=== PATIENT | female | born 1940 | race Caucasian/White ===

== ENCOUNTER 2018-05-03 22:54 | Inpatient (IN) ==
[2018-05-04] MEDS ORDERED: Aluminum/Magnesium/Simethacone Susp 30 ML UDC PO PRN ×2 (05:23→10:45)
[2018-05-04] MEDS ORDERED: LORazepam 0.5 MG Tablet PO PRN (05:23)
[2018-05-04] MEDS ORDERED: Acetaminophen 325 MG Tablet PO PRN (05:23)
[2018-05-04] MEDS ORDERED: Ibuprofen 600 MG Tablet PO SCH (06:00)
[2018-05-04 09:34] LABS: Baso % (Auto) 0.3 % (0.0-2.0); Eos % (Auto) 0.6 % (0.0-4.0); Hematocrit 41.1 % (35.0-46.0); Hemoglobin 13.7 gm/dL (11.6-15.3); Lymph # (Auto) 2.1 th/mm3 (1.0-4.8); Lymph % (Auto) 29.9 % (9.0-44.0); Mean Corpuscular HGB Conc 33.4 % (32.0-36.0); Mean Corpuscular Hemoglobin 29.5 pg (27.0-34.0); Mean Corpuscular Volume 88.5 fL (80.0-100.0); Mono # (Auto) 0.5 th/mm3 (0.0-0.9); Mono % (Auto) 6.6 % (0.0-8.0); Neut # (Auto) 4.3 th/mm3 (1.8-7.7); Neut % (Auto) 62.6 % (16.0-70.0); Platelet Count 213 th/mm3 (150-450); Red Blood Count 4.64 mil/mm3 (4.00-5.30); Red Cell Distribution Width 13.6 % (11.6-17.2); White Blood Count 6.9 th/mm3 (4.0-11.0)
[2018-05-04 09:45] LABS: Clarity,Urine Clear (Clear); Color,Urine Yellow (Yellw/Straw); Glucose,Urine (UA) Negative (Negative); Leukocyte Esterase,Urine Negative (Negative); Nitrite,Urine Negative (Negative); PH,Urine 6.5 (5.0-8.5)
[2018-05-04 09:48] LABS: Bilirubin,Urine Negative (Negative); Specific Gravity,Urine 1.026 (1.002-1.035)
[2018-05-04 10:16] LABS: RBC,Urine 0-3 /hpf (0-3); Squamous Epithelial Cell,Urine 0-5 /hpf (0-5); WBC,Urine 0-5 /hpf (0-5)
[2018-05-04 10:18] LABS: Amorphous Sediment,Urine Few /hpf
[2018-05-04 10:28] LABS: Albumin 3.5 g/dL (3.4-5.0); Anion Gap 11 meq/L (5-15); Aspartate Aminotransferase 9 U/L (15-37); Blood Urea Nitrogen 14 mg/dL (7-18); Calcium 8.9 mg/dL (8.5-10.1); Carbon Dioxide 28.3 meq/L (21.0-32.0); Chloride 108 meq/L (98-107); Glomerular Filtration Rate 53 mL/min (>89); Glucose,Random 115 mg/dL (74-106); Sodium 147 meq/L (136-145)
[2018-05-04 10:36] LABS: Chol/HDL Ratio 3.44 Ratio; HDL Cholesterol 50.5 mg/dL (40.0-60.0)
[2018-05-04 10:40] LABS: Alanine Aminotransferase 16 U/L (10-53); Alkaline Phosphatase 39 U/L (45-117); Total Protein 6.7 g/dL (6.4-8.2)
[2018-05-04] MEDS ORDERED: Bisacodyl 10 MG Supp RECTAL PRN (10:45)
--- NOTE | 2018-05-04 11:07 | P.HPPSY ---
Provisional Diagnosis Admission Date: May 04, 2018 00:46 [place] I.: Adjustment disorder with depressed mood Competence Certification of Person's Competence To Provide Express and Informed Consent I have personally examined Turner Peoples, a person being served at [facility] on, May 04, 2018 1055. Express and informed consent means consent voluntarily given in writing, by a competent person, after sufficient explanation and disclosure of the subject matter involved to enable the person to make a knowing and willful decision without any element of force, fraud, deceit, duress, or other form of constraint or coercion. This person is 18 years of age or older, is not now known to be incompetent to consent to treatment with a guardian advocate, and does not have a health care surrogate or proxy currently making medical treatment decisions. I have found this person to be one of the following: [xxxx] Competent to provide express and informed consent, as defined above, for voluntary admission to this facility and is competent to provide express and informed consent for treatment. He/she has the consistent capacity to make well reasoned, willful, and knowing decisions concerning his or her medical or mental health treatment. The person fully and consistently understands the purpose of the admission for examination/placement and is fully capable of personally exercising all rights assured [place] Incompetent to provide express and informed consent to voluntary admission, and this is incompetent to provide express and informed consent to treatment. The person must be transferred to involuntary status and a petition for a guardian advocate filed with the Circuit Court. [] Refusing to provide express and informed consent to voluntary admission but is competent to provide express and informed consent for treatment. The person must be discharged or transferred to involuntary status. Form shall be completed within 24 hours of a person's arrival at the receiving facility and filed in the clinical record of each person: 1. Admitted on a voluntary basis 2. Permitted to provide express and informed consent to his/her own treatment 3. Allowed to transfer from involuntary to voluntary status 4. Prior to permitting a person to consent to his or her own treatment after having been previously found incompetent to consent to treatment. History of Present Illness Capacity: Has capacity History of Present Illness: Patient is an 78-year-old white female initially came here in transfer from [facility] under a [place] act signed by Dilan Cazares [facility] kevin Rodríguez dated 05/03/1817 and 35 that document reviewed states wishes to patient recently treated for depression/anxiety now cannot take it anymore wishes to . Patient seen screen in that facility urine toxicology positive for benzodiazepines. Patient medically cleared and transferred here under the [place] act. At the present time patient sitting quietly in the exam room along with nurse Tameka. Patient is alert oriented clean and neat attractive calm cooperative white female appears younger than her stated age. History of increased depression with anxiety over the past few months related to significant medical issues that her of 55 years is experiencing that is led him being on chronic dialysis 3 times a week. He is home he is doing fairly well on the dialysis. Patient states she is getting along well with her . She has 2 adult daughters and grandchildren and great grandchildren and they all get along well together. Patient denies any prior psychiatric contact or hospitalization though she has been placed on benzodiazepines and Celexa in an emergency department visit a couple of weeks ago when she had what appears to been a panic type attack. She also has a primary care physician. Patient denies any mental health history in her family patient denies any alcohol or drug use or addictions in her family also. She denies any past physical or sexual abuse. 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 Patient is still concerned about her medications and her mood. We did explain to her the biopsychosocial model for depression. At this time I feel she does meet criteria for further observation for another 24-48 hours. Though I will lift the [place] act allow her to sign voluntary will continue her on her Celexa at 20 mg daily first dose yet today we will discontinue all benzodiazepines. At small amount of Atarax she needs something for anxiety. We will also refer her through to the psychiatric services in the community upon discharge - Inpatient Certification I certify that the inpatient services were ordered in accordance with Medicare regulations governing the order. This includes certification that hospital inpatient services are reasonable and necessary and in the case of services not specified as inpatient-only under 42 CFR 419.22(n), that they are appropriately provided as inpatient services in accordance to with the 2-midnight benchmark under 43 CFR 412.3(e) I certify that inpatient psychiatric hospital services are medically necessary. Evaluation and treatment and/or diagnostic testing are expected to improve the patient's condition. The patient needs on a daily basis, active treatment furnished directly by or requiring the supervision of inpatient psychiatric facility personnel. Estimated Total Length of Stay (Days): 5 Plans for Post Hospital Care: Home Review of Systems All other systems reviewed negative except as stated in HPI [facility] - History History Provided By: Patient - Medical History Medical History: Medical History (Last Updated 05/04/18 @ 06:13 by Julia Huang RN) Cyst of breast, benign solitary Onset Date: ~1979 Diverticulosis Hypercholesteremia Hypertension - Tobacco History Second Hand Smoke Exposure: No Smoking Status: Never smoker - Alcohol History How Often Do You Have a Drink Containing Alcohol: Monthly or less - Substance Use History Substance History: No History of Abuse - Immunization History Tetanus Immunization: Unsure Hx Influenza Vaccine This Season: Yes Quality Measures - Psychiatric History Psychological trauma history: Patient denies Violence risk to others in the last 6 months: Low Violence risk to self in the last 6 months: Low - Substance Abuse History Drug or alcohol use in the past 12 months: Patient denies - Patient Strengths Patient's strengths (minimum of 2): Patient calm cooperative alert and intelligent with good support group Medications and Allergies Active Medications: Active Medications Acetaminophen (Tylenol) 650 mg PO Q4H PRN PRN Reason: Pain 1-5 or Temp >101F Al Hydrox/Mg Hydrox/Simethicone (Mag-Al Plus Susp Liq) 30 ml PO Q6H PRN PRN Reason: DYSPEPSIA Al Hydrox/Mg Hydrox/Simethicone (Mag-Al Plus Susp Liq) 30 ml PO Q6H PRN PRN Reason: DYSPEPSIA Al Hydroxide/Mg Hydroxide (Milk Of Magnesia Liq) 30 ml PO DAILY PRN PRN Reason: Constipation Al Hydroxide/Mg Hydroxide (Milk Of Magnesia Liq) 30 ml PO Q12H PRN PRN Reason: Mild Constipation Bisacodyl (Dulcolax Supp) 10 mg RECTAL DAILY PRN PRN Reason: SEVERE CONSITIPATION Citalopram Hydrobromide (Celexa) 20 mg PO DAILY DEDE Diphenhydramine HCl (Benadryl) 50 mg PO HS PRN PRN Reason: INSOMNIA Hydroxyzine HCl (Atarax) 50 mg PO Q6H PRN PRN Reason: ANXIETY Lactulose (Lactulose Liq) 30 ml PO DAILY PRN PRN Reason: SEVERE CONSITIPATION Nicotine (Habitrol 21 Mg Patch.24 Hr) 1 patch T-DERMAL DAILY DEDE Last Admin: 05/04/18 09:17 Dose: Not Given Senna/Docusate Sodium (Angela-Colace) 1 tab PO BID [facility] Sennosides (Senokot) 17.2 mg PO Q12H PRN PRN Reason: Moderate Constipation Allergies Allergy/AdvReac Type Severity Reaction Status Date / Time levofloxacin [From Levaquin] Allergy Hives Verified 05/04/18 05:18 Results - Labs CBC & Chem 7: 05/04/18 08:48 05/04/18 08:48 Labs: Laboratory Results - last 24 hr 05/04/18 05/04/18 05/04/18 08:20 08:48 08:48 WBC 6.9 RBC 4.64 Hgb 13.7 Hct 41.1 MCV 88.5 MCH 29.5 MCHC 33.4 RDW 13.6 Plt Count 213 MPV 10.0 Neut % (Auto) 62.6 Lymph % (Auto) 29.9 [place] % (Auto) 6.6 Eos % (Auto) 0.6 Baso % (Auto) 0.3 Neut # (Auto) 4.3 Lymph # (Auto) 2.1 [place] # (Auto) 0.5 Eos # (Auto) 0.0 Baso # (Auto) 0.0 WBC Differential . Differential Comment Auto diff final Sodium 147 H Potassium 3.0 L Chloride 108 H Carbon Dioxide 28.3 Anion Gap 11 BUN 14 Creatinine 1.00 Estimated GFR 53 L Random Glucose 115 H Calcium 8.9 Total Bilirubin 0.5 AST 9 L ALT 16 Alkaline Phosphatase 39 L Total Protein 6.7 Albumin 3.5 Triglycerides Cholesterol LDL Cholesterol, Calc HDL Cholesterol Cholesterol/HDL Ratio TSH 1.550 Ur Collection Type Clean catch Urine Color Yellow Urine Clarity Clear Urine pH 6.5 Ur Specific [place] 1.026 Urine Protein 30 H Urine Glucose (UA) Negative Urine Ketones Negative Urine Occult Blood Negative Urine Nitrate Negative Urine Bilirubin Negative Urine Urobilinogen 1.0 Ur Leukocyte Esterase Negative Urine RBC 0-3 Urine WBC 0-5 Ur Squamous Epith Cells 0-5 Ur Transition Epith Cell 1-5 H Amorphous Sediment Few H Micro UA Comment Culture not ind Urine Culture Comments Culture not ind 05/04/18 08:48 WBC RBC Hgb Hct MCV MCH MCHC RDW Plt Count MPV Neut % (Auto) Lymph % (Auto) [place] % (Auto) Eos % (Auto) Baso % (Auto) Neut # (Auto) Lymph # (Auto) [place] # (Auto) Eos # (Auto) Baso # (Auto) WBC Differential Differential Comment Sodium Potassium Chloride Carbon Dioxide Anion Gap BUN Creatinine Estimated GFR Random Glucose Calcium Total Bilirubin AST ALT Alkaline Phosphatase Total Protein Albumin Triglycerides 116 Cholesterol 174 LDL Cholesterol, Calc 100 H HDL Cholesterol 50.5 Cholesterol/HDL Ratio 3.44 TSH Ur Collection Type Urine Color Urine Clarity Urine pH Ur Specific [place] Urine Protein Urine Glucose (UA) Urine Ketones Urine Occult Blood Urine Nitrate Urine Bilirubin Urine Urobilinogen Ur Leukocyte Esterase Urine RBC Urine WBC Ur Squamous Epith Cells Ur Transition Epith Cell Amorphous Sediment Micro UA Comment Urine Culture Comments Exam Vital signs: Vital Signs 05/04/18 04:42 05/04/18 06:38 Temperature 97.5 F L 97.5 F L Pulse Rate 71 83 Respiratory Rate 17 Blood Pressure 169/77 H 165/74 H Pulse Oximetry 98 Intake & Output 05/03/18 05/04/18 05/04/18 18:59 06:59 18:59 Weight 52.4 kg Other: Weight On Admission 52.4 kg Narrative: Patient sitting quietly in exam room with nurse Tameka, she is in no acute distress, there is no respiratory distress, no complaints of chest pain no complaints of abdominal pain. Patient moving all 4 extremities without difficulty Mental Status Examination Appearance: Appropriate, Well dressed/well groomed Consciousness: Alert Orientation: x4 Motor Activity: Normal gait Speech: Unremarkable Language: Adequate Fund of Knowledge: Adequate Attention and Concentration: Adequate Memory: Unremarkable Mood: Other (Euthymic to mildly dysphoric) Affect: Other (Good range and intensity) Thought Process & Associations: Intact, Logical Thought Content: Appropriate Delusion Type: None Suicidal Ideation: No Suicidal Plan: No Suicidal Intention: No Homicidal Ideation: No Homicidal Plan: No Homicidal Intention: No Insight: Adequate Judgment: Adequate Assessment and Plan - Assessment (1) Adjustment disorder with depressed mood Code(s): F43.21 - Adjustment disorder with depressed mood Status: Acute - Plan Plan: Estimated LOS: 1-2 [] days Patient meets criteria for further observation though we will lift the [place] act allow her to sign voluntary. We will continue her Celexa 20 mg daily. We will refrain from any benzodiazepines. Hope this will be a short stay we can refer both counseling and mental health services in the community Justification for Continued Inpatient Stay: We will restart the medication observe for another 24-48 hours Discharge Planning: Return home Request Healthcare Surrogate/Guardian Advocate?: No
[2018-05-04] MEDS: Citalopram 20 MG Tablet PO SCH (12:14)
[2018-05-04 16:34] LABS: Hemoglobin A1c 5.4 % (4.3-6.0)
--- NOTE | 2018-05-04 16:35 | P.CON ---
History of Present Illness Service: Hospitalist Consult date: 05/04/18 Requesting Physician: Nicholas Caldwell Reason for Consult: Medical Managment Primary Care Provider: Kristie Martin DO Chief Complaint: sad History of Present Illness: Patient is an 78-year-old white female who was transferred from [facility] under [place] act due to depression and possible suicidal intention. Past medical history includes hypertension and hyperlipidemia. Patient reports that her depression has increased due to the fact that she is dealing with her 's illness and helping him to dialysis 3 times a week.. She is seen in her room. She is dressed neatly and appears quite a bit younger than her age. She tells me that she has no concerns at this time. Denies chest pain or shortness of breath. No nausea vomiting or diarrhea. She is tolerating her meals well. Normal urination and bowel movements. Review of Systems All other systems reviewed negative except as stated in HPI [facility] - History History Provided By: Patient, Medical Record - Medical History Medical History: Medical History (Last Reviewed 05/04/18 @ 16:20 by RYLEY Yanes) Cyst of breast, benign solitary Onset Date: ~1979 Diverticulosis Hypercholesteremia Hypertension - Surgical History Surgical History: Surgical History (Last Reviewed 05/04/18 @ 16:20 by RYLEY Yanes) H/O section S/P breast lumpectomy - Family History Family History: Family History (Last Reviewed 05/04/18 @ 16:20 by RYLEY Yanes) Mother HTN (hypertension) - Tobacco History Second Hand Smoke Exposure: No Smoking Status: Never smoker - Alcohol History How Often Do You Have a Drink Containing Alcohol: Monthly or less - Substance Use History Substance History: No History of Abuse - Immunization History Tetanus Immunization: Unsure Hx Influenza Vaccine This Season: Yes Medications and Allergies Active Medications: Active Medications Acetaminophen (Tylenol) 650 mg PO Q4H PRN PRN Reason: Pain 1-5 or Temp >101F Al Hydrox/Mg Hydrox/Simethicone (Mag-Al Plus Susp Liq) 30 ml PO Q6H PRN PRN Reason: DYSPEPSIA Al Hydroxide/Mg Hydroxide (Milk Of Magnesia Liq) 30 ml PO Q12H PRN PRN Reason: Mild Constipation Bisacodyl (Dulcolax Supp) 10 mg RECTAL DAILY PRN PRN Reason: SEVERE CONSITIPATION Citalopram Hydrobromide (Celexa) 20 mg PO DAILY [facility] Last Admin: 05/04/18 12:14 Dose: 20 mg Diphenhydramine HCl (Benadryl) 50 mg PO HS PRN PRN Reason: INSOMNIA Hydroxyzine HCl (Atarax) 50 mg PO Q6H PRN PRN Reason: ANXIETY Last Admin: 05/04/18 13:38 Dose: 50 mg Lactulose (Lactulose Liq) 30 ml PO DAILY PRN PRN Reason: SEVERE CONSITIPATION Nicotine (Habitrol 21 Mg Patch.24 Hr) 1 patch T-DERMAL DAILY [facility] Last Admin: 05/04/18 09:17 Dose: Not Given Senna/Docusate Sodium (Angela-Colace) 1 tab PO BID [facility] Sennosides (Senokot) 17.2 mg PO Q12H PRN PRN Reason: Moderate Constipation Allergies Allergy/AdvReac Type Severity Reaction Status Date / Time levofloxacin [From [facility]] Allergy Hives Verified 05/04/18 05:18 Home Medications Medication Instructions Recorded Confirmed Type lovastatin 1 tab PO 05/04/18 History triamterene-hydrochlorothiazid 1 tab PO DAILY 05/04/18 05/04/18 History Physical Exam Vital signs: Vital Signs 05/04/18 04:42 05/04/18 06:38 Temperature 97.5 F L 97.5 F L Pulse Rate 71 83 Respiratory Rate 17 Blood Pressure 169/77 H 165/74 H Pulse Oximetry 98 Intake & Output 05/03/18 05/04/18 05/04/18 18:59 06:59 18:59 Weight 52.4 kg Other: Date of Last Bowel Movement 05/03/18 Weight On Admission 52.4 kg Narrative: GENERAL: Well-nourished, well-developed adult female in no obvious distress. SKIN: Warm and dry. HEAD: Atraumatic. Normocephalic. CARDIOVASCULAR: Regular rate and rhythm. RESPIRATORY: No accessory muscle use. Clear to auscultation. Breath sounds equal bilaterally. GASTROINTESTINAL: Abdomen soft, non-tender, non-distended. Positive bowel sounds. MUSCULOSKELETAL: Extremities without clubbing, cyanosis, or edema. No obvious deformities. NEUROLOGICAL: Awake and alert. No obvious cranial nerve deficits. Motor grossly within normal limits. Normal speech. Assessment and Plan - Plan Patient is an 78-year-old white female who was transferred from [facility] under [place] act due to depression and possible suicidal intention. Past medical history includes hypertension and hyperlipidemia. Patient reports that her depression has increased due to the fact that she is dealing with her 's illness and helping him to dialysis 3 times a week. Depression -Managed by psychiatry Hypertension -Restart home medications -Maxzide Hyperlipidemia -Restart home medication -lovastatin Hypokalemia -Acute. give 40 mEq PO on 05/04. Repeat BMP. DVT prophylaxis: Patient is ambulatory Thank you for this consult. we appreciate the opportunity to assist you with medical management of this patient
[2018-05-04] MEDS ORDERED: Triamterene/HCTZ 37.5 MG/25 MG Tablet PO ONE (19:00)
[2018-05-04] MEDS: Senna/Docusate Sodium 8.6/50 MG Tablet PO SCH (20:38)
[2018-05-05 06:40] VITALS: O2SAT 96
[2018-05-05] MEDS: Triamterene/HCTZ 37.5 MG/25 MG Tablet PO SCH (08:14)
[2018-05-05] MEDS: Senna/Docusate Sodium 8.6/50 MG Tablet PO SCH ×2 (08:14→21:01)
[2018-05-05] MEDS: Citalopram 20 MG Tablet PO SCH (08:14)
[2018-05-05 11:09] LABS: Calcium 9.1 mg/dL (8.5-10.1); Carbon Dioxide 30.5 meq/L (21.0-32.0); Potassium 3.3 meq/L (3.5-5.1)
--- NOTE | 2018-05-05 15:02 | P.PNPSY ---
Subjective Remarks: Patient seen in her room with RN. Chart reviewed. Patient compliant medication. It appears patient tolerated today's dose of Celexa without problem. She says she is sleeping somewhat better also. Her mood remained sad. For now continue treatment Review of Systems All other systems reviewed negative except as stated in HPI Mental Status Examination Appearance: Appropriate, Well dressed/well groomed Consciousness: Alert Orientation: x4 Motor Activity: Normal gait Speech: Unremarkable Language: Adequate Fund of Knowledge: Adequate Attention and Concentration: Adequate Memory: Unremarkable Mood: Other (Euthymic to mildly dysphoric) Affect: Other (Good range and intensity) Thought Process & Associations: Intact, Logical Thought Content: Appropriate Delusion Type: None Suicidal Ideation: No Suicidal Plan: No Suicidal Intention: No Homicidal Ideation: No Homicidal Plan: No Homicidal Intention: No Insight: Adequate Judgment: Adequate Assessment and Plan - Assessment (1) Adjustment disorder with depressed mood Code(s): F43.21 - Adjustment disorder with depressed mood Status: Acute - Plan Plan: Patient continues depressed though somewhat improved. Compliant medication. For now continue treatment Justification for Continued Inpatient Stay: At this time patient would decompensate a place to the lower level of care Discharge Planning: Return home with family Request Healthcare Surrogate/Guardian Advocate?: No
--- NOTE | 2018-05-05 16:54 | P.PN ---
Subjective Interval history: Follow-up visit for hypertension, hyperlipidemia, and hypokalemia. Patient is seen and examined in the day room eating dinner and in no acute distress. She denies any fevers, chills, cough, shortness of breath,N/V/D, dizziness, lightheadedness, or chest pain. Does not report any acute concerns at this moment. Physical Exam Vital signs: Vital Signs 05/04/18 17:51 05/04/18 18:00 Temperature 36.8 C Pulse Rate 67 73 Respiratory Rate 16 16 Blood Pressure 170/77 H 121/76 Pulse Oximetry 97 96 Intake & Output 05/04/18 05/05/18 05/05/18 18:59 06:59 18:59 Other: Date of Last Bowel Movement 05/03/18 05/03/18 Narrative: GENERAL: Well-nourished, well-developed adult female in no obvious distress. SKIN: Warm and dry. HEAD: Atraumatic. Normocephalic. CARDIOVASCULAR: Regular rate and rhythm. RESPIRATORY: No accessory muscle use. Clear to auscultation. Breath sounds equal bilaterally. MUSCULOSKELETAL: Extremities without edema. No obvious deformities. NEUROLOGICAL: Awake and alert. No obvious cranial nerve deficits. Motor grossly within normal limits. Normal speech. Results - Labs CBC & Chem 7: 05/04/18 08:48 05/05/18 09:35 Laboratory Results - last 24 hr 05/04/18 05/05/18 08:48 09:35 Sodium 145 Potassium 3.3 L Chloride 107 Carbon Dioxide 30.5 Anion Gap 8 BUN 19 H Creatinine 1.13 H Estimated GFR 46 L Random Glucose 95 Hemoglobin A1c 5.4 Calcium 9.1 Assessment and Plan - Plan Patient is an 78-year-old white female who was transferred from [facility] under [place] act due to depression and possible suicidal intention. Past medical history includes hypertension and hyperlipidemia. Patient reports that her depression has increased due to the fact that she is dealing with her 's illness and helping him to dialysis 3 times a week. Depression -Managed by psychiatry Hypertension - Continue Maxzide -BP fluctuates, but has been stable as of last HS Hyperlipidemia -Continue lovastatin Hypokalemia -Acute, s/p p.o KCL replacement. K still low at 3.3, replace with po -recheck labs in the am DVT prophylaxis: Patient is ambulatory Discussed Condition With: Patient
[2018-05-06 06:36] LABS: Calcium 8.6 mg/dL (8.5-10.1); Carbon Dioxide 28.8 meq/L (21.0-32.0); Magnesium 2.2 mg/dL (1.5-2.5); Potassium 3.7 meq/L (3.5-5.1)
[2018-05-06] MEDS: Senna/Docusate Sodium 8.6/50 MG Tablet PO SCH (08:42)
[2018-05-06] MEDS: Triamterene/HCTZ 37.5 MG/25 MG Tablet PO SCH (08:42)
[2018-05-06] MEDS: Citalopram 20 MG Tablet PO SCH (08:42)
[2018-05-06 11:15] VITALS: BP 156/71; PULSE 80; RESP 17; TEMP 98.1
--- NOTE | 2018-05-06 11:55 | P.DSPSY ---
Psychiatry Discharge Summary Inpatient Psychiatric care?: Yes Advance Directives: No Mental Health Advance Directive: No Health Care Proxy: No - Admission Admission Date: May 04, 2018 00:46 - Admission Diagnosis (1) Adjustment disorder with depressed mood Code(s): F43.21 - Adjustment disorder with depressed mood Brief History: Patient is an 78-year-old white female initially came here in transfer from [facility] under a [place] act signed by Dilan Cazares [facility] dated 05/03/1817 and 35 that document reviewed states wishes to patient recently treated for depression/anxiety now cannot take it anymore wishes to . Patient seen screen in that facility urine toxicology positive for benzodiazepines. Patient medically cleared and transferred here under the [place] act. At the present time patient sitting quietly in the exam room along with nurse Tameka. Patient is alert oriented clean and neat attractive calm cooperative white female appears younger than her stated age. History of increased depression with anxiety over the past few months related to significant medical issues that her of 55 years is experiencing that is led him being on chronic dialysis 3 times a week. He is home he is doing fairly well on the dialysis. Patient states she is getting along well with her . She has 2 adult daughters and grandchildren and great grandchildren and they all get along well together. Patient denies any prior psychiatric contact or hospitalization though she has been placed on benzodiazepines and Celexa in an emergency department visit a couple of weeks ago when she had what appears to been a panic type attack. She also has a primary care physician. Patient denies any mental health history in her family patient denies any alcohol or drug use or addictions in her family also. She denies any past physical or sexual abuse. 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 Patient is still concerned about her medications and her mood. We did explain to her the biopsychosocial model for depression. At this time I feel she does meet criteria for further observation for another 24-48 hours. Though I will lift the [place] act allow her to sign voluntary will continue her on her Celexa at 20 mg daily first dose yet today we will discontinue all benzodiazepines. At small amount of Atarax she needs something for anxiety. We will also refer her through to the psychiatric services in the community upon discharge Tobacco Use In Past 30 Days: No How Often Do You Have a Drink Containing Alcohol: Monthly or less Hospital Course: Patient's hospital course was uneventful, she showed compliance with medication from day 1 her depression lifted gradually but fairly quickly. Her anxiety and vigilance also subsided. She denies suicidality homicidality voice or visions. States she has had good conversations with her . Patient is a little stressed today because of some commotions that occurred on the unit last night she is processing that fairly well. Need event at this time patient longer meets criteria for inpatient psychiatric hospitalization thus patient will be discharged today with Rx 1 month follow-up Dr. Grant Bar, also referred to [facility] outpatient support groups - Discharge Discharge Date: 05/06/18 - Discharge Diagnosis (1) Adjustment disorder with depressed mood Diagnosis: Principal Code(s): F43.21 - Adjustment disorder with depressed mood Status: Acute Discharge Disposition: Home - Discharge Instructions Discharge Diet: Regular Diet Activities You Can Perform: Regular- No Restrictions - Discharge Time > 30 minutes Mental Status Examination Appearance: Appropriate, Well dressed/well groomed Consciousness: Alert Orientation: x4 Motor Activity: Normal gait Speech: Unremarkable Language: Adequate Fund of Knowledge: Adequate Attention and Concentration: Adequate Memory: Unremarkable Mood: Other (Euthymic to mildly dysphoric) Affect: Other (Good range and intensity) Thought Process & Associations: Intact, Logical Thought Content: Appropriate Delusion Type: None Suicidal Ideation: No Suicidal Plan: No Suicidal Intention: No Homicidal Ideation: No Homicidal Plan: No Homicidal Intention: No Insight: Adequate Judgment: Adequate Discharge/Advance Care Plan - Results Vital Signs: Last Vital Signs Temp 98.1 F 05/06/18 11:15 Pulse 80 05/06/18 11:15 Resp 17 05/06/18 11:15 BP 156/71 H 05/06/18 11:15 Pulse Ox 96 05/06/18 11:15 Lab Results: Abnormal Lab Results 05/06/18 05:50 Sodium 144 Potassium 3.7 Chloride 108 H Carbon Dioxide 28.8 Anion Gap 7 BUN 19 H Creatinine 1.04 H Estimated GFR 51 L Random Glucose 93 Calcium 8.6 Magnesium 2.2 Laboratory Results Hemoglobin A1c 5.4 % (4.3-6.0) 05/04/18 08:48 Triglycerides 116 mg/dL (42-150) 05/04/18 08:48 Cholesterol 174 mg/dL (120-200) 05/04/18 08:48 LDL Cholesterol, Calc 100 mg/dL (0-99) H 05/04/18 08:48 HDL Cholesterol 50.5 mg/dL (40.0-60.0) 05/04/18 08:48 TSH 1.550 uIU/mL (0.358-3.740) 05/04/18 08:48 Urine Culture Comments Culture not ind 05/04/18 08:20 Summary of Procedures: None done Pending Results: None - Medications Number of antipsychotic medications at discharge: 0 - Discharge Care Plan Goals to Promote Your Health: * To prevent worsening of your condition and complications * To maintain your health at the optimal level Directions to Meet Your Goals: Take your medications as prescribed Follow your dietary instruction Follow activity as directed Keep your appointments as scheduled Take your immunizations and boosters as scheduled If your symptoms worsen call your PCP, if no PCP go to Urgent Care Center or Emergency Room For 21/04 questions related to your inpatient stay or results of tests pending at discharge, please contact Dr. Nicholas Caldwell MD at Smoking is Dangerous to Your Health. Avoid second hand smoking
== END 2018-05-06 14:40 | disposition home or self-care (01) ==
LOC: H260 05-04 00:46
PROVIDERS: ADMIT Psychiatry & Neurology Psychiatry; ATTEND Psychiatry & Neurology Psychiatry
CPT/HCPCS: 80048; 80053; 80061; 81001; 83036; 83735; 84443; 85025